=== PATIENT | male | born 1945 | race Caucasian/White ===

== ENCOUNTER 2023-03-24 11:04 | Day surgery (SDC) | payer MEDICARE, SELFPAY ==
[2023-03-24] VITALS (21 sets, daily range): BP systolic 93–164; BP diastolic 61–95; PULSE 54–89; RESP 14–20; TEMP 35.8–36.6; O2SAT 93–99; BMI 37.5
[2023-03-24] MEDS: OXYCODONE (CR) 10 MG TAB.ER.12H PO (11:36)
[2023-03-24] MEDS: CELECOXIB 200 MG CAPSULE PO (11:36)
[2023-03-24] MEDS: ACETAMINOPHEN 500 MG TABLET 1000 MG PO ×2 (11:36→20:02)
[2023-03-24] MEDS: LACTATED RINGERS 1000 ML 1,000 ML 100 ML IV ×2 (12:00→14:41)
[2023-03-24] MEDS: SODIUM CHLORIDE 0.9 % (FLUSH) 10 ML SYRINGE IVF (12:09)
--- NOTE | 2023-03-24 13:12 | P.NB_ITS ---
Nerve Block Nerve Block Time Seen by Provider: 13:45 Date Seen: 03/24/23 Type of block requested by surgeon for post-operative analgesia: adductor canal Side: left Time out performed: Yes Verification of patient name: Yes Verification of date of : Yes Site marking: site marked Name of person performing procedure: Stevie Continuous monitoring Was continuous monitoring of O2 sat, B/P, property assessment monitor, recorded every 15 minutes?: Yes Procedure Checklist: sterile prep, needles and gloves Ultrasound guided. Images saved: Yes Medications given in 5ml increments after negative aspiration: Ropivicaine %: 0.5 mL: 20 Needle gauge: 20 Decadron (mg): 10 Precedex (mcg): 25 Patient tolerated procedure well: Yes Additional comments: Needle noted adjacent to nerve Block Charges Block Charge (with Pro Fee): Femoral Nerve Use of Ultrasound Machine for Block: Yes- US Guidance/pain block
--- NOTE | 2023-03-24 13:12 | W.PM.NB ---
Nerve Block Nerve Block Time Seen by Provider: 13:45 Date Seen: 03/24/23 Type of block requested by surgeon for post-operative analgesia: geniculars Side: left Time out performed: Yes Verification of patient name: Yes Verification of date of : Yes Site marking: site marked Name of person performing procedure: Stevie Continuous monitoring Was continuous monitoring of O2 sat, B/P, monitoring analyst, recorded every 15 minutes?: Yes Procedure Checklist: sterile prep, needles and gloves Medications given in 5ml increments after negative aspiration: Ropivicaine %: 0.5 mL: 9 Needle gauge: 25 Patient tolerated procedure well: Yes Block Charges Block Charge (with Pro Fee): Genicular Nerve Block Use of Ultrasound Machine for Block: No
--- NOTE | 2023-03-24 13:12 | W.ANESCHARGE ---
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
--- NOTE | 2023-03-24 13:29 | REH.PT ---
Sx moved to 1445, PT to eval tomorrow.
[2023-03-24] MEDS: fentaNYL 100 MCG/2 ML inj IVP (13:43)
[2023-03-24] MEDS: MIDAZOLAM HCL 1 MG/ML inj IVP (13:43)
--- NOTE | 2023-03-24 13:49 | SUR.PREOP ---
TIME?OUT:?1343 PT/RN/MDA?VERIFICATION?OF?SURGICAL?SITE,?PROCEDURE,?AND?CONSENT OBTAINED?PRIOR?TO?INVASIVE?PROCEDURE.
[2023-03-24] MEDS: TRANEXAMIC ACID 100 MG/ML INJ 1000 MG IV (14:10)
[2023-03-24] MEDS: CEFAZOLIN 2 GM INJ IVP (14:10)
--- NOTE | 2023-03-24 15:37 | CRLHL7_ITS ---
For Patients: As a result of the Cures Act, medical imaging exams and procedure reports are released immediately into your electronic medical record. You may view this report before your referring provider. If you have questions, please contact your health care provider. Indication: Postop Technique: Two views left knee Findings/Impression: Hardware from a left total knee arthroplasty is in satisfactory position. Bone alignment is normal. No sign of acute fracture. Postop changes are within normal limits. Dictated by Hussain Rider MD @ 03/25/2023 8:53:07 AM (Electronically Signed)
--- NOTE | 2023-03-24 15:38 | PM.ORPRC ---
Procedure Note Date of procedure: 03/24/23 Procedure: PREOPERATIVE DIAGNOSIS: Left knee osteoarthritis POSTOPERATIVE DIAGNOSIS: Left knee osteoarthritis NAME OF OPERATION: Left total knee arthroplasty SURGEON: Andres Haskins MD TECHNICAL TRAINING COORDINATOR: MILENA Ohara ANESTHESIA: Spinal ESTIMATED BLOOD LOSS: 0 mL COMPLICATIONS: None SPECIMENS: None DRAINS: None PREOPERATIVE ANTIBIOTICS: Ancef 2 grams IMPLANTS: 1. J&J Attune # 8 posterior stabilized femur 2. # 7 fixed-bearing tibia, 14 mm x 50 mm cemented stem 3. # 8 posterior stabilized, 8 mm fixed-bearing polyethylene 4. 41 patella INDICATIONS: The patient is a 77-year-old with a longstanding history of severe, unrelenting left knee pain secondary to end-stage (grade IV) left knee osteoarthritis. Despite appropriate nonoperative management, including activity modification, anti-inflammatories, klll-mnq-[id number] pain medication, bracing, physical therapy, and injections they continue to have pain and disability. Operative intervention was offered. The risks, benefits and expected outcomes were discussed in detail. These included but were not limited to: Infection, bleeding, injury to blood vessel or nerve, venous thromboembolism. All questions were answered to their satisfaction. Use of an shipping and receiving assistant was necessary throughout the case for patient positioning and safety, soft tissue retraction, and closure. PROCEDURE: Spinal anesthesia was administered. The patient was placed supine on the operating table. The shipping and receiving assistant made sure the patient was positioned appropriately. The lower extremity was prepped and draped in the usual sterile fashion. The limb was exsanguinated with the Chad bandage. The pneumatic tourniquet was inflated to 300 mmHg. A standard anterior incision was made with the knee in flexion. Subcutaneous dissection was sharply taken through fascial layer #1. Full-thickness medial and lateral flaps were elevated. The shipping and receiving assistant retracted the soft tissues and protected them throughout the case. A standard medial parapatellar approach was made. The patella was everted. The infrapatellar fat pad was preserved. The menisci and cruciate ligaments were sharply d?brided. Marginal osteophytes were d?brided with the rongeur. The drill was used to penetrate the femoral canal. The canal was aspirated and irrigated with pulse lavage. The intramedullary femoral guide was placed for a 5-degree valgus cut, removing 10 mm off the distal femur. The saw was used to make the cut. Whitesides line and the trans epicondylar axis were marked. The femoral sizing guide was pinned onto the distal femur. Three degrees of external rotation nicely parallels the transepicondylar axis. Pins were placed for posterior referencing. The four-in-one cutting guide was pinned onto the distal femur. The anterior, posterior, and chamfer cuts were made. The shipping and receiving assistant protected the collateral ligaments. The box cutting guide was pinned. The box cuts were made. The boxed trial was placed and was an excellent fit. Drill holes for the lugs were made. Attention was then turned to the proximal tibia. The extramedullary tibial guide was placed for a neutral varus/valgus cut with 5 degrees of posterior slope, removing 2 mm based off the medial tibial surface. The shipping and receiving assistant protected the collateral ligaments and the neurovascular bundle. The saw was used to make the cut. Trial components were placed. The knee was nicely balanced in both flexion and extension. The trial components were removed. The revision tray was placed in appropriate rotation, parallel to our tibial cutting pins. It was pinned by the shipping and receiving assistant and the long and the short drill were used. The tray was removed. The stemmed trial was placed. The punch was used. The trial was removed and the punch was used again. We placed a bone plug in the femoral canal. Attention was then turned to the patella. Hamilton patellar thickness was 26 mm. The lobster claw resection guide was used with the 9.5 mm jaclyn. The saw was used to make the cut. Drill holes were made by the shipping and receiving assistant. The trial was placed and was an excellent fit. Cancellous surfaces were irrigated with pulse lavage and thoroughly dried by the shipping and receiving assistant. We cemented the tibial component, then the femoral component. We impacted the 8 mm polyethylene onto the tibial tray. The knee was brought into full extension. We then cemented the patellar component. Excessive cement was removed. The cement was allowed to harden. The knee was taken through a range of motion and was found to be nicely balanced in both flexion and extension. The patella tracks centrally. The shipping and receiving assistant did a three minute dilute Betadine solution soak. The shipping and receiving assistant irrigated the wound with 3 liters of normal saline via pulse lavage. The shipping and receiving assistant reapproximated the extensor mechanism with #1 Vicryl in an interrupted jgjkmw-jk-ykugy fashion. The shipping and receiving assistant then ran the extensor mechanism with a #1 PDO Stratafix. The shipping and receiving assistant closed the subcutaneous tissues with a 3-0 Stratafix and the skin with a running 3-0 Stratafix in a subcuticular fashion. Glue was used to seal the skin. The shipping and receiving assistant placed a dry dressing, PAULINE stocking, and Polar Care. Sponge and needle counts were correct x2. The patient tolerated the procedure well. There were no apparent complications. They were carefully transferred to the hospital bed and taken to the postanesthesia care unit in satisfactory condition. PLAN: The patient will be mobilized with physical therapy. Aspirin will be used for DVT prophylaxis. They will be discharged to home once medically appropriate.
--- NOTE | 2023-03-24 16:22 | P.ANES_ITS ---
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
--- NOTE | 2023-03-24 16:49 | P.IMCN_ITS ---
Date of Consult Patient: Cora Patient Consult date: 03/24/23 Requesting Physician: Orthopedics Primary Care Provider: Bigg Lan MD Consult Narrative Reason for consult: hypertension, congenital kidney disease, DM2 Narrative: Zack Fontana is a 77 year old male who underwent an elective left total knee arthroplasty by Dr. Haskins today for severe osteoarthritis. He's feeling very well. Pain is well controlled. Denies CP, SOB. 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 - Cystic kidney disease, unspecified (ICD-10) Type 2 diabetes mellitus without complications ?E11.9 - Type 2 diabetes mellitus without complications (ICD-10) Hypertension ?I10 - Essential (primary) hypertension (ICD-10) Surgical History (Updated 03/24/23 @ 21:32 by Linda Magana MD) History of tonsillectomy and adenoidectomy ?Z90.89 - Acquired absence of other organs (ICD-10) H/O local excision of skin lesion (~09/29/17) ?Z98.890 - Other specified postprocedural states (ICD-10) Hx of colonoscopy ?Z98.890 - Other specified postprocedural states (ICD-10) H/O hernia repair (03/07/20) ?Z98.890 - Other specified postprocedural states (ICD-10) ?Z87.19 - Personal history of other diseases of the digestive system (ICD-10) History of appendectomy ?Z90.49 - Acquired absence of other specified parts of digestive tract (ICD- 10) Family History (Updated 03/24/23 @ 16:48 by Linda Magana MD) Father Pacemaker Myocardial infarction Heart disease Mother Colon cancer Brother Bladder cancer Brother Hodgkin lymphoma Maternal Grandfather Heart disease Social History Smoking Status: Never smoker Do you use any of these nicotine containing products: None Second hand tobacco smoke exposure: No How often do you have a drink containing alcohol: 2-4 times a month Alcohol type: beer How many standard drinks containing alcohol do you have on a typical day: 1 or 2 How often do you have six or more drinks on one occasion: Never AUDIT-C Alcohol total score: 2 Non-prescribed substance use: denies use Caffeine: Yes (occ coffee) service: Yes Meds Home Medications and Allergies Home Medications Medication Instructions Recorded Confirmed Type aspirin 81 mg tablet,delayed 81 mg PO QDAY 02/16/23 03/24/23 History release fluticasone propionate 50 1 spray intranasal BID 02/16/23 03/24/23 History mcg/actuation nasal spray,suspension hydrochlorothiazide 12.5 mg tablet 12.5 mg PO HS 02/16/23 03/24/23 History losartan 50 mg tablet 50 mg PO HS 02/16/23 03/24/23 History multivitamin (Multiple Vitamins 1 tab PO QAM 02/16/23 03/24/23 History tablet) omega 8-gar-vqt-fish oil 1,000 mg 1 cap PO QDAY 02/16/23 03/24/23 History (120 mg-180 mg) capsule (Fish Oil) simvastatin 20 mg tablet 20 mg PO HS 03/23/23 03/24/23 History ferrous sulfate 325 mg (65 mg 325 mg PO DAILY 03/24/23 03/24/23 History iron) tablet (FeroSul) Allergies Allergy/AdvReac Type Severity Reaction Status Date / Time Sulfa (Sulfonamide AdvReac Rash Verified 03/24/23 11:40 Antibiotics) Exam Narrative: Exam Narrative: General: No acute distress. Awake alert oriented x3. HEENT: Normocephalic atraumatic, pupils equally round and reactive to light and accommodation. Oropharynx clear. Mucous membranes are moist. No cervical lymphadenopathy, thyromegaly or carotid bruits. No JVD. Cardiovascular: Regular rate and rhythm. No murmurs, gallops, or rubs. Chest: No increased work of breathing. Clear to auscultation bilaterally. No crackles or wheezes. Abdomen: Bowel sounds present. Soft, nondistended, nontender. No hepatosplenomegaly or masses. Extremities: Right knee bandage is clean, dry, and intact. No edema, no cyanosis or clubbing. Skin: No jaundice, no pallor, no rashes. Const: Vital Signs, click to edit/add: Vital Signs - 24 hr 03/24/23 11:50 03/24/23 13:43 03/24/23 13:45 Temperature 98 F Pulse Rate 55 L 54 L 57 L Respiratory Rate 16 16 16 Blood Pressure 151/89 H 131/79 108/73 Pulse Oximetry 98 99 98 Oxygen Delivery Me thod Nasal Cannula Nasal Cannula Oxygen Flow Rate 2 2 03/24/23 16:16 03/24/23 16:20 03/24/23 16:25 Temperature 97.3 F L 97.3 F L 97.3 F L Pulse Rate 60 58 L 58 L Respiratory Rate 14 17 14 Blood Pressure 93/63 103/73 96/67 Pulse Oximetry 96 95 94 Oxygen Delivery Me thod Room Air Room Air Room Air Oxygen Flow Rate 03/24/23 16:30 03/24/23 16:35 03/24/23 16:40 Temperature 97.3 F L 97.3 F L 97.1 F L Pulse Rate 57 L 56 L 56 L Respiratory Rate 20 14 14 Blood Pressure 111/66 101/61 113/69 Pulse Oximetry 98 98 93 Oxygen Delivery Me thod Room Air Room Air Room Air Oxygen Flow Rate Documenting provider has reviewed patient's vital signs: yes Assessment and Plan Assessment and plan (1) Status post left knee replacement: Problem comment: - 03/24/2023 Dr. Haskins - routine postop cares - twice a day aspirin for VTE prophylaxis Status: Acute (2) Osteoarthritis of left knee: Status: Acute (3) Type 2 diabetes mellitus without complications: Problem comment: - 02/09/23 A1C 6.7% - diet controlled Status: Chronic (4) Hyperlipidemia: Problem comment: Continue simvastatin. Status: Chronic (5) Hypertension: Problem comment: Hold antihypertensives postoperatively as low normal. This could be restarted if blood pressures are elevated upon discharge. Status: Chronic
--- NOTE | 2023-03-24 16:57 | SUR.PHASEI ---
patient met discharge criteria per anesthesia
[2023-03-24] MEDS: CEFAZOLIN 2 GM in 0.9 % SODIUM CHLORIDE Mini-bag 100 ML IVPB (20:02)
[2023-03-24] MEDS: SENNOSIDES 1 TAB TABLET 2 TAB PO (20:06)
[2023-03-24] MEDS: ASPIRIN 81 MG TABLET EC PO (20:07)
[2023-03-24] MEDS: SIMVASTATIN 20 MG TABLET PO (22:20)
--- NOTE | 2023-03-24 22:30 | PC.NURSE ---
Med surg recovery LTK arrived to the floor at 1650. LK mepilex dressing is CDI, no drainage present. Cyrocuff to op site, pedal pulse strong. PAULINE stockings and bilateral plexipulses on. The patient reports no pain. Pt's feeling has returned to LLE. Tolerating food with no nausea. Up to BR SBA w/ RW @2200 pt voided 500cc. Tolerated well with no dizziness/lightheadedness. Post op vitals-slightly hypertensive, he is on on RA -last q1 hr VS check is @ 2300. LJ=935, sliding scale Novolog given.
[2023-03-25] MEDS: ACETAMINOPHEN 500 MG TABLET 1000 MG PO ×2 (03:35→08:31)
[2023-03-25] MEDS: CEFAZOLIN 2 GM in 0.9 % SODIUM CHLORIDE Mini-bag 100 ML IVPB (03:35)
[2023-03-25] MEDS: SODIUM CHLORIDE 0.9 % (FLUSH) 10 ML SYRINGE 5 ML IVF (03:36)
[2023-03-25 05:35] VITALS: BP 141/83; PULSE 94; RESP 16; TEMP 36.6; O2SAT 94
--- NOTE | 2023-03-25 06:19 | PC.NURSE ---
Shift note: Surgical dressing is C/D/I, surrounding skin is intact, pedal pulses strong, moving affected extremity well. Pt is afebrile, pain is 0/10 throughout the whole shift. Ambulates with no increase of pain, no lightheadedness or dizziness, tolerates PO food and fluids with no c/o nausea.
[2023-03-25 07:00] VITALS: PULSE 82; RESP 20; O2SAT 99
[2023-03-25 07:12] LABS: Hematocrit 37.3 % (37.0-53.0); Hemoglobin* 11.8 gm/dL (13.5-17.5); Immature Granulocytes Pct Auto 0.2 %; Lymphocytes Percent Auto 8.3 % (20-44); Mean Corpuscular HGB Conc 32 gm/dL (32-36); Mean Corpuscular Hemoglobin 24 pg (26-34); Mean Corpuscular Volume 77 fL (80-100); Monocytes Percent Auto 4.7 % (0.0-11.0); Neutrophils Percent Auto 86.8 % (42.0-72.0); Platelet Count* 281 K/uL (140-440); RDW Coefficient of Variation % 17.1 % (11.5-15.5); Red Blood Count 4.86 m/uL (4.30-5.90); White Blood Count* 13.54 K/uL (4.50-11.00)
[2023-03-25 07:25] LABS: Potassium* 4.5 mmol/L (3.6-5.1); Sodium* 135 mmol/L (135-149)
[2023-03-25 07:27] LABS: Slide Review Reflex No
[2023-03-25 07:28] LABS: Blood Urea Nitrogen* 23 mg/dL (7-30); Creatinine* 0.8 mg/dL (0.5-1.5); Est. Creatinine Clearance* 54.67; Estimated Glomerular Filt Rate 92 ml/min
[2023-03-25 07:34] LABS: INR 0.98 (0.91-1.10); Prothrombin Time 13.5 Seconds
[2023-03-25 08:05] VITALS: BP 150/98; PULSE 82; RESP 20; TEMP 36.9; O2SAT 99
[2023-03-25] MEDS: MULTIVITAMIN/MINERALS 1 TABLET 1 TAB PO (08:29)
[2023-03-25] MEDS: FERROUS SULFATE 325 MG TABLET PO (08:29)
[2023-03-25] MEDS: ASPIRIN 81 MG TABLET EC PO (08:29)
[2023-03-25] MEDS: SENNOSIDES 1 TAB TABLET 2 TAB PO (08:29)
--- NOTE | 2023-03-25 08:47 | PM.ORPN ---
Subjective Subjective Time Seen by Provider: 07:45 Date Seen: 03/25/23 Principal diagnosis: status post left knee replacement Interval history: Zack is comfortable this morning. He will discharge today to home. Ortho Exam Narrative Exam Narrative: Alert and oriented x3. Patient is in no acute distress. Converses without labored breathing. Hearing is grossly intact. Ambulates with a Walker. Examination the left knee shows no erythema or warmth or sign of infection. Dressing is intact. Mild edema. Mild effusion. No ecchymosis. Bilateral calves are soft and nontender. Good quad strength. CMS intact left lower extremity. Const Vital Signs, click to edit/add: Vital Signs - 24 hr 03/24/23 11:50 03/24/23 13:43 03/24/23 13:45 Temperature 98 F Pulse Rate 55 L 54 L 57 L Pulse Rate [Left Pulse Oximeter] Respiratory Rate 16 16 16 Blood Pressure 151/89 H 131/79 108/73 Blood Pressure [Right Arm] Pulse Oximetry 98 99 98 Oxygen Delivery Method Nasal Cannula Nasal Cannula Oxygen Flow Rate 2 2 03/24/23 16:16 03/24/23 16:20 03/24/23 16:25 Temperature 97.3 F L 97.3 F L 97.3 F L Pulse Rate 60 58 L 58 L Pulse Rate [Left Pulse Oximeter] Respiratory Rate 14 17 14 Blood Pressure 93/63 103/73 96/67 Blood Pressure [Right Arm] Pulse Oximetry 96 95 94 Oxygen Delivery Method Room Air Room Air Room Air Oxygen Flow Rate 03/24/23 16:30 03/24/23 16:35 03/24/23 16:40 Temperature 97.3 F L 97.3 F L 97.1 F L Pulse Rate 57 L 56 L 56 L Pulse Rate [Left Pulse Oximeter] Respiratory Rate 20 14 14 Blood Pressure 111/66 101/61 113/69 Blood Pressure [Right Arm] Pulse Oximetry 98 98 93 Oxygen Delivery Method Room Air Room Air Room Air Oxygen Flow Rate 03/24/23 16:45 03/24/23 17:15 03/24/23 17:25 Temperature 97.1 F L 96.7 F L 96.6 F L Pulse Rate 59 L Pulse Rate [Left Pulse Oximeter] 64 54 L Respiratory Rate 15 18 18 Blood Pressure 100/65 Blood Pressure [Right Arm] 149/95 H 141/91 H Pulse Oximetry 95 96 97 Oxygen Delivery Method Room Air Room Air Room Air Oxygen Flow Rate 03/24/23 17:40 03/24/23 17:56 03/24/23 18:00 Temperature 96.5 F L 97.3 F L 96.8 F L Pulse Rate 58 L Pulse Rate [Left Pulse Oximeter] 57 L 84 Respiratory Rate 18 16 18 Blood Pressure Blood Pressure [Right Arm] 148/80 H 114/71 150/75 H Pulse Oximetry 96 98 Oxygen Delivery Method Room Air Room Air Room Air Oxygen Flow Rate 03/24/23 18:30 03/24/23 19:00 03/24/23 20:00 Temperature 97.2 F L 97.3 F L 97.0 F L Pulse Rate Pulse Rate [Left Pulse Oximeter] 80 81 84 Respiratory Rate 16 16 16 Blood Pressure Blood Pressure [Right Arm] 144/76 H 152/75 H 164/86 H Pulse Oximetry 96 95 93 Oxygen Delivery Method Room Air Room Air Room Air Oxygen Flow Rate 03/24/23 21:00 03/24/23 22:00 03/24/23 23:00 Temperature 97.2 F L 97.8 F Pulse Rate Pulse Rate [Left Pulse Oximeter] 85 89 Respiratory Rate 16 16 Blood Pressure Blood Pressure [Right Arm] 148/87 H 152/87 H Pulse Oximetry 94 95 95 Oxygen Delivery Method Room Air Room Air Oxygen Flow Rate 03/25/23 05:35 03/25/23 07:00 03/25/23 07:00 Temperature 98 F Pulse Rate Pulse Rate [Left Pulse Oximeter] 94 82 Respiratory Rate 16 20 Blood Pressure Blood Pressure [Right Arm] 141/83 H Pulse Oximetry 94 99 Oxygen Delivery Method Room Air Oxygen Flow Rate 03/25/23 08:05 Temperature 98.5 F Pulse Rate Pulse Rate [Left Pulse Oximeter] 82 Respiratory Rate 20 Blood Pressure Blood Pressure [Right Arm] 150/98 H Pulse Oximetry 99 Oxygen Delivery Method Room Air Oxygen Flow Rate Assessment and Plan Assessment and plan (1) Status post left knee replacement: Problem details: - 03/24/2023 Dr. Haskins - routine postop cares - twice a day aspirin for VTE prophylaxis Status: Acute Assessment and Plan: Plan for discharge is today to home if they meet discharge criteria. DVT prophylaxis includes aspirin 81 mg twice daily x1 month, Robert stockings x1 month may remove for 1 hr per day, frequent ambulation Remove dressing in 1 week. Observe wound and phone Orthopedics with any questions or concerns Return to clinic in 1 week for a wound check Return to clinic in [address] Haskins Minimize narcotic use. Wean off and discontinue soon as possible. Activities as tolerated. No strenuous activity. Outpatient physical therapy as scheduled. Ice and elevate the operative extremity. No restriction on ice. (2) Osteoarthritis of left knee: Status: Acute (3) Type 2 diabetes mellitus without complications: Problem details: - 02/09/23 A1C 6.7% - diet controlled Status: Chronic (4) Hyperlipidemia: Problem details: Continue simvastatin. Status: Chronic (5) Hypertension: Problem details: Hold antihypertensives postoperatively as low normal. This could be restarted if blood pressures are elevated upon discharge. Status: Chronic
--- NOTE | 2023-03-25 12:03 | PC.SOCIAL ---
Pt. discharged home with spouse support after a LTKA. Pt. is moving well no additional resources needed.
== END 2023-03-25 09:55 | disposition home or self-care (01) ==
LOC: OR 11:05 → MEDSURG 11:08
PROVIDERS: PCP Family Medicine; Visit Provider Orthopaedic Surgery
PROC: (CPT 27447; principal; 2023-03-24 14:45)
DX: M17.12 Unilateral primary osteoarthritis, left knee (principal); G89.18 Other acute postprocedural pain; I10 Essential (primary) hypertension; E11.9 Type 2 diabetes mellitus without complications; Q61.5 Medullary cystic kidney
CPT/HCPCS: 27447; 01402; 36415; 64447; 64454; 73560; 76942; 82565; 82962; 84132; 84295; 84520; 85025; 85610; 97110; 97116; 97161; 97165; 97535; 99100; A9153; A9270; C1776; J0690; J1100; J2250; J2405; J2704; J2795; J3010; J7120

== ENCOUNTER 2023-05-19 07:30 | Outpatient (RCR) | payer MEDICARE, SELFPAY ==
--- NOTE | 2023-03-19 17:44 | PT.OPEX ---
[facility] Start: 03/19/23 14:35 Freq: Status: Active Protocol: Document 03/19/23 16:47 IRIS (Rec: 03/19/23 17:39 IRIS [id number]) E-signed By Scotty Aguilar PT Physical Therapy Outpatient Evaluation Insurance Information Insurance Name Medicare B,[employer] Medical Diagnosis Left knee OA Treating Diagnosis Left knee pain Referring MD Haskins Subjective Pain Comments 2 Date of Surgery (If applicable) 03/24/23 Current Work Status Retired Objective Range of Motion Bilat. knee flexion is WNL Bilat. extension shows a 5 degree lag Strength normal quad strength Assessment Assessment/Impression Objectively, pt. demonstrates; slightly flexed knee gait pattern; mild loss of bilateral knee extension with some flexion contracture noted ; good bilateral knee flexion ROM; normal quad strength; and mild gluteal weakness/ deconditioning. He demonstrates excellent rehab potential following his TKA. Primary Functional Limitations walking, steps, sit to stand, bowling, golfing, hunting Plan of Care Rehabilitation Potential Excellent Physical Therapy Goals 1. Pt. will be indep. with HEP for self maintenance in 12 weeks. 2. Pt. will be able to walk without assistive device with good gait pattern in 8 weeks. 3. Pt. will demonstrate normal quad and good core strength in 8 weeks. 4. Pt. will demonstrate functional knee AROM to allow regular ADL's and step navigation in 8 weeks. Coordination/Communication With Referral Source Treatment Plan/Direct Interventions Gait Training,Ice/Cold/ Vasopneumatic,Joint Mobilization,Manual Therapy, Neuromuscular Re-ed,Self-Care/ Home Management,Therapeutic Activities,Therapeutic Exercises Frequency/Duration 1 pre-op visit, then 2 times a week for 8 weeks following TKA surgery. Patient Will Be Discharged From Therapy Independent w/HEP, Independently Progressing Evaluation Billing Complexity Low Certification Information Initial Certification Date 03/19/23 Ending Certification Date 06/12/23 Provider Signature Shows Agreement With POC & Medical Necessity Physician Signature & Date Requested Please Sign/Date Here Physician Comment/Change : Physician NPI Number #
== END 2023-05-19 09:57 | disposition home or self-care (01) ==
PROVIDERS: PCP Orthopaedic Surgery; Visit Provider Orthopaedic Surgery
DX: M17.12 Unilateral primary osteoarthritis, left knee (principal); Z96.652 Presence of left artificial knee joint; M25.562 Pain in left knee; Z47.1 Aftercare following joint replacement surgery; Z51.89 Encounter for other specified aftercare
CPT/HCPCS: 97110; 97116; 97140; 97161; 97164

== ENCOUNTER 2023-09-24 08:29 | Day surgery (SDC) | payer MEDICARE, SELFPAY ==
[2023-09-24] VITALS (22 sets, daily range): BP systolic 102–157; BP diastolic 64–89; PULSE 49–75; RESP 14–20; TEMP 36.3–36.9; O2SAT 95–98; BMI 39.2
--- OUTSIDE RECORDS SUMMARY | 2023-09-24 08:32 | XMS_ITS | Clinical Summary ---
Author Name Unknown Organization [employer] [facility] [employer] [facility] Address [place], [place] [address] Care Team Providers Care Power Lineman Name Role Phone Bigg Lan MD Primary Care Provider Allergies Active Allergy Reactions Criticality Noted Date Comments Sulfa (Sulfonamide Antibiotics) Rash 01/2007 Medications Medication Sig Dispensed Refills Start Date End Date Status aspirin (ECOTRIN) 81 mg enteric coated tablet Take 1 tablet by mouth once daily with a meal. 0 02/20/2015 Active multivitamin (MVI) tablet Take 1 Tablet by mouth once daily. 0 11/01/2021 Active simvastatin (ZOCOR) 20 mg tabletIndications:M ixed hyperlipidemia Take 1 Tablet (20 mg) by mouth at bedtime. 90 Tablet 3 08/18/2022 Active fluticasone (50 mcg per actuation) nasal solution (FLONASE)Indication s:Acute non-recurrent maxillary sinusitis Inhale 1 Preston to both nostrils 2 times daily. 48 g 3 11/03/2022 Active hydroCHLOROthiazide 12.5 mg tabletIndications:E ssential hypertension Take 1 Tablet (12.5 mg) by mouth once daily. 90 Tablet 3 01/29/2023 Active losartan (COZAAR) 50 mg tabletIndications:E ssential hypertension Take 0.5 Tablets (25 mg) by mouth two times daily. 90 Tablet 3 01/29/2023 Active metFORMIN (GLUCOPHAGE) 500 mg tabletIndications:D iabetes mellitus without complication (HC) Take 1 Tablet (500 mg) by mouth once daily with a meal. 90 Tablet 1 02/13/2023 Active ferrous sulfate 325 mg delayed release tabletIndications:I lorie deficiency anemia, unspecified iron deficiency anemia type Take 1 Tablet (325 mg) by mouth once daily with a meal. 90 Tablet 3 03/16/2023 Active acetaminophen (TYLENOL EXTRA STRGTH) 500 mg tablet Take 1-2 Tablets (500-1,000 mg) by mouth every 6 hours if needed for pain, Max Daily Dose: 4000mg per day 100 Tablet 0 03/24/2023 Active aspirin chewable 81 mg chewable tablet Chew 1 Tablet (81 mg) by mouth two times daily with meals for DVT prophylaxis for 30 days. 60 Tablet 0 03/24/2023 Active oxyCODONE (ROXICODONE) 5 mg immediate release tablet Take 0.5-1 Tablets (2.5-5 mg) by mouth every 4-6 hours if needed for Pain, Max Daily Dose: 6 tabs per day; Minimize. Discontinue as soon as possible. 42 Tablet 0 03/24/2023 Active sennosides (SENNA) 8.6 mg tablet Take 2 Tablets (17.2 mg) by mouth 2 times daily if needed for constipation. 100 Tablet 0 03/24/2023 Active losartan-hydrochlor othiazide, 50-12.5 mg, (HYZAAR) 50-12.5 mg tabletIndications:E ssential hypertension Take 1 tablet by mouth once daily. 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 Type II or unspecified type diabetes mellitus without mention of complication, not stated as uncontrolled 10/06/2006 Hematuria 10/06/2006 Nevus, atypical Family history of colon cancer Resolved Problems Problem Noted Date Diagnosed Date Resolved Date Morbid obesity 01/07/2017 11/03/2021 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 Encounters Date Type Department Care Team Description 09/23/[address] [place] [address] Bigg Lan MD 09/17/2023 9:10 AM PHP WEBSITE DEVELOPER Preop Visit [address] [place] [address] [address] MD Preoperative Exam (Surgery with Dr Haskins at [facility] on 09/24/23) 09/17/2023 Travel 09/07/2023 10:30 AM PHP WEBSITE DEVELOPER Orders Only [address] [place] [address] [facility] 09/07/2023 Travel 09/02/[address] [place] [address] Bigg Lan MD Form ([facility] forms) 08/20/2023 9:10 AM PHP WEBSITE DEVELOPER Office Visit [address] [place] [address] Bigg Lan MD Medicare ANNUAL (subsequent) Visit 08/20/2023 Travel from Last 3 Months Immunizations Name Administration Dates Next Due AMB Influenza, IIV3 (Age >=3 years)(Flu Clinic Only) 06/27/2008 COVID-19 vaccine (Moderna 100mcg/0.5mL) PF, MDV 11/23/2020,10/26/2020 COVID-19 vaccine (Pfizer-Bio NTech 30mcg/0.3mL) 12YO+ BIVALENT PF, MDV 08/18/2022 Hepatitis A (Adult) 12/21/2017,10/07/2015,2014 Hepatitis B (Adult) 06/28/2001,02/02/2001,2000 Influenza, High-dose Inactivated 05/25/2018,11/0 01/2017,06/03/2016 Influenza, IIV3 (Age 6-35 mos) 06/24/2011 Influenza, IIV3 (Age >=3 years) 06/22/20 13,06/12/2012,06/24/2011,2008,06/27/2008,07/13/2007,07/09/2006,1 09/16/2004,07/20/2003 Influenza, IIV4 06/09/2019,05/25/2015,08/01/2014 Influenza, IIV4 (=>6mos) MDV 06/09/2019 Influenza, Inactivated AIIV4 (Age 65+ Years) Preserv Free 06/16/2022,05/21/2021,05/21/2020 Influenza, Inactivated IIV3 (Age 65+ Years) Preserv Free 07/06/2017 Pneumococcal Poly,23-Valent (Pneumovax) 06/22/2013,07/20/2003,07/29/2001 Pneumococcal conj 13-Valent (Prevnar 13) 08/25/2012 Td (Age >=7 Years) 11/29/1993 Td, Preservative Free (age > = 7 Years) 07/13/2007 Tdap 12/21/2017 Zoster (Shingrix-RZV, recombinant) 07/30/2018, Zoster (Zostavax-ZVL, live) 06/22/2013 Family History Medical History Relation Name Comments Cancer Brother 1 bladder Cancer Brother 5 HODKIN'S LYMPHO MA Heart Disease Father PACEMAKER Heart Disease Maternal Grandfather Cancer-colon Mother Anesthesia Problem No Family History Clotting disorder No Family History Relation Name Status Comments Brother 1 Alive Brother 2 Alive Brother 3 Alive Brother 4 Alive Brother 5 Daughter Alive Father Maternal Grandfather Maternal Grandmother Mother Paternal Grandfather Paternal Grandmother Sister 1 Alive Sister 2 Alive Sister 3 Alive Son 1 Alive Son 2 Alive Son 3 Alive Son 4 Alive Social History Tobacco Use Types Packs/Day Years Used Date Smoking Tobacco: Never Smokeless Tobacco: Never Tobacco Cessation:Counseling Given: Yes Alcohol Use Standard Drinks/Week Comments Yes 0 (1 standard drink = 0.6 oz pur e alcohol) RARE, maybe once a month PHQ-2 Answer Date Recorded PHQ-2 TOTAL SCORE 0 08/20/2023 Social Connections Answer Date Recorded Frequency of Communication with Friends and Fami ly Not on file 02/12/2023 Financial Resource Strain Answer Date R ecorded Difficulty of Paying Living Expenses 3 02/11/2022 Difficulty of Paying Living Expenses Not on file 02/11/2022 Food Insecurity Answer Date Recorded Worried About Running Out of Food in the Last Ye ar 1 02/11/2022 Transportation Needs Answer Date Record ed Lack of Transportation (Medical) 1 02/11/2022 Housing Stability Answer Date Recorded Unable to Pay for Housing in the Last Year 1 02/11/2022 Sex and Gender Information Value Date Recorded Sex Assigned at Not on file Gender Identity Not on file Sexual Orientation Not on file Obstetrics History Last Filed Vital Signs Vital Sign Reading Time Taken Comments Blood Pressure 134/82 09/17/2023 9:19 AM PHP WEBSITE DEVELOPER Pulse 87 09/17/2023 9:15 AM PHP WEBSITE DEVELOPER Temperature 36.7 ??C (98 ??F) 08/18/2022 7:28 AM PHP WEBSITE DEVELOPER Respiratory Rate 20 09/17/2023 9:15 AM PHP WEBSITE DEVELOPER Oxygen Saturation 95% 09/17/2023 9:15 AM PHP WEBSITE DEVELOPER Inhaled Oxygen Concentration - - Weight 107.3 kg (236 lb 8 oz) 09/17/2023 9:15 AM PHP WEBSITE DEVELOPER Height 167 cm (5' 5.75) 09/17/2023 9:15 AM PHP WEBSITE DEVELOPER Body Mass Index 38.46 09/17/2023 9:15 AM PHP WEBSITE DEVELOPER Plan of Treatment Health Maintenance Due Date Last Done Comments Influenza for age 65+ 05/01/2023 06/16/2022 , 05/21/2021, 05/21/2020, Additional history exists Medicare Wellness for age 65+ 08/19/2024, 08/18/2022, 08/16/2021, Additional history exists Depression screening for age 12+ 08/20/2024 08/20/2023, 08/18/2022, 08/19/2021, Additional history exists BMI (ht and wt on same day) for age 18+ 09/17/2024 09/17/2023, 08/20/2023, 03/13/2023, Additional history exists Tetanus booster 12/22/2027 12/21/2017, 07/01, 11/29/1993 Pneumococcal series for age 65+ Completed 06/22/2013, 08/25/2012, 07/20/2003, Additional history exists Tdap Completed 12/21/2017 Zoster (shingles) series for age 50+ Completed 07/30/2018, 05/25/2018, 06/22/2013 Hepatitis C screening for ag e 18-79 Completed 02/21/2021 COVID-19 vaccine series Completed 06/04/20, 08/18/2022, 03/12/2022, Additional history exists Goals Goal Patient Goal Type Associated Problems Recent Progress Patient-Stated? Author BLOOD PRESSURE - MAINTAINS BP less than 140/90 Blood Pressure No Jr Carlisle MD Medical Devices Implanted Type Area Customer Project Manager Device Identifier Shelf Expiration Date Model / Serial / Lot Mesh Inguinal Rt 3x5in 3-D Max - [id number] Implanted:Qty : 1 on 03/07/2020 by Lauren Ray DO at [facility] General Surgery Implants Right: Inguinal [employer] 07/28/2024 [id number] / / [id number] Explanted Type Area Customer Project Manager Device Identifier Shelf Expiration Date Model / Serial / Lot Mesh Inguinal Rt 4x6in 3-D Max - [id number] Implanted:Qty: 1 Explanted:Qty: 1 on 03/07/2020 at [facility] Right: Inguinal [employer] 08/27/2024 [id number] / / [id number] Procedures Procedure Name Priority Date/Time Associated Diagnosis Comments HEMOGLOBIN A1C Add On 09/07/2023 9:44 AM PHP WEBSITE DEVELOPER Controlled type 2 diabetes mellitus with complication, without long-term current use of insulin (HC) LIPID PANEL W REFLEX MEASURED LDL STAT 09/07/2023 9:44 AM PHP WEBSITE DEVELOPER Mixed hyperlipidemia CBC W PLT NO DIFF Routine 09/07/2023 9:4 4 AM PHP WEBSITE DEVELOPER Preop testing BASIC METABOLIC PANEL STAT 09/07/2023 9:44 AM PHP WEBSITE DEVELOPER Essential hypertension Controlled type 2 diabetes mellitus with complication, without long-term current use of insulin (HC) from Last 3 Months Results * (ABNORMAL) LIPID PANEL W REFLEX MEASURED LDL (09/07/2023 9:44 AM PHP WEBSITE DEVELOPER) CHOLESTEROL,TOTAL 189 100 - 199 mg/dL 09/07/2023 10:37 AM PHP WEBSITE DEVELOPER [facility] Comment: Cholesterol, Total Reference Ranges Desirable <200 mg/dL Borderline 200-239 mg/dL High >=240 mg/dL TRIGLYCERIDES 201(H) <150 mg/dL 09/07/2023 10:37 AM [facility] HDL CHOLESTEROL 42 >40 mg/dL 10:37 AM [facility] NON-HDL CHOLESTEROL 147(H) <145 mg/dl 09/07/2023 10:37 AM [facility] CHOL/HDL RATIO 4.50(H) <4.50 09/07/2023 10:37 AM [facility] LDL CHOLESTEROL 107 <=130 mg/dL 09/07/2023 10:37 AM [facility] VLDL CHOLESTEROL 40(H) <=30 mg/dL 09/07/2023 10:37 AM [facility] PROVIDER ORDERED STATUS RANDOM 09/07/2023 10:37 AM [facility] Blood BLOOD SPECIMEN / Unknown Venipuncture / Unknown 09/07/2023 9:44 AM PHP WEBSITE DEVELOPER 09/07/2023 9:47 AM [facility] Bigg Lan MD CHEMISTRY [facility] [address] [place] [address] * (ABNORMAL) CBC W PLT NO DIFF (09/07/2023 9:44 AM [facility]) WHITE BLOOD COUNT 7.9 4.5 - 11.0 thou/cu mm 09/07/2023 10:30 AM [facility] RED BLOOD COUNT 5.63 4.30 - 5.90 mil/cu mm 09/07/2023 10:30 AM [facility] HEMOGLOBIN 14.3 13.5 - 17.5 g/dL 09/07/2023 10:30 AM [facility] HEMATOCRIT 45.7 37.0 - 53.0 % 09/07/2023 10:30 AM [facility] MCV 81 80 - 100 fL 09/07/2023 10:30 AM [facility] MCH 25.4(L) 26.0 - 34.0 pg 09/07/2023 10:30 AM [facility] MCHC 31.3(L) 32.0 - 36.0 g/dL 09/07/2023 10:30 AM [facility] RDW 19.9(H) 11.5 - 15.5 % 09/07/2023 10:30 AM [facility] PLATELET COUNT 284 140 - 440 thou/cu mm 09/07/2023 10:30 AM [facility] MPV 9.5 6.5 - 11.0 fL 09/07/2023 10:30 AM [facility] Blood BLOOD SPECIMEN / Unknown Venipuncture / Unknown 09/07/2023 9:44 AM PHP WEBSITE DEVELOPER 09/07/2023 9:47 AM PHP WEBSITE DEVELOPER Bigg Lan MD HEMATOLOGY Performing Organization Address City/State/[facility] Co de Phone Number [facility] [address] [place] [address] * (ABNORMAL) HEMOGLOBIN A1C MONITORING (POCT) (09/07/2023 9:44 AM PHP WEBSITE DEVELOPER) HEMOGLOBIN A1C MONITORING (POCT) 6.6(H) <=6.4 % 09/07/2023 4:52 PM PHP WEBSITE DEVELOPER [facility] Blood BLOOD SPECIMEN / Unknown Venipuncture / Unknown 09/07/2023 9:44 AM PHP WEBSITE DEVELOPER 09/07/2023 9:47 AM PHP WEBSITE DEVELOPER Narrative [facility] - 09/07/2023 4:52 PM PHP WEBSITE DEVELOPER ? (<=6.9%) ? Indicates good control ? (7.0% to 7.9%) ? Indicates fair control ? (>=8.0%) ? Indicates poor control ?? NOTE: ??These thresholds are guidelines and ?individual targets may vary. Falsely low levels may be seen with: Recent Transfusion, Recent Significant Blood Loss, Hemolytic Diseases, or Falsely elevated levels may be seen with: Untreated Anemias, Splenectomy ? Bigg Lan MD CHEMISTRY [facility] [address] [place] [address] * (ABNORMAL) BASIC METABOLIC PANEL (09/07/2023 9:44 AM [facility]) SODIUM 138 136 - 145 mmol/L 09/07/2023 10:37 AM [facility] POTASSIUM 4.1 3.5 - 5.1 mmol/L 09/07/2023 10:37 AM [facility] CHLORIDE 100 98 - 107 mmol/L 09/07/2023 10:37 AM [facility] CO2,TOTAL 27 22 - 29 mmol/L 09/07/2023 10:37 AM [facility] ANION GAP 11 5 - 18 09/07/2023 10:37 AM [facility] GLUCOSE 132(H) 70 - 99 mg/dL 09/07/2023 10:37 AM [facility] CALCIUM 9.4 8.8 - 10.2 mg/dL 09/07/2023 10:37 AM [facility] BUN 18 8 - 23 mg/dL 09/07/2023 10:37 AM [facility] CREATININE 0.92 0.70 - 1.20 mg/dL 09/07/2023 10:37 AM [facility] BUN/CREAT RATIO 20 10 - 20 10:37 AM [facility] eGFR 86(L) >90 mL/min/1.7 3m2 09/07/2023 10:37 AM [facility] Comment:As of 2021, eG FR is calculated by the CKD-EPI creatinine equation without race adjustment. ??eGFR can be influenced by muscle mass, exercise, and diet. ??The reported eGFR is an estimation only and is only applicable if the renal function is stable. Blood BLOOD SPECIMEN / Unknown Venipuncture / Unknown 09/07/2023 9:44 AM PHP WEBSITE DEVELOPER 09/07/2023 9:47 AM PHP WEBSITE DEVELOPER Bigg Lan MD CHEMISTRY [facility] [address] [facility] [place] [address] from Last 3 Months Advance Directives Latest Code Status on File Code Status Date Activated Date Inactivated Comments Full Code 06/19/2021 8:11 AM 06/19/2021 1:12 PM Question Answer Comments Code Status Discussion: Per Existing Order Code Status History Code Status Date Activated Date Inactivated Comments Full Code 03/07/2020 10:45 AM 03/07/2020 9:23 PM Question Answer Comments Code Status Discussion: Discussed Care Teams Power Lineman Relationship Specialty Start Date End Date Bigg Lan MD [address] [facility] [place] [address] PCP - General Family Practice 08/02/20
[2023-09-24] MEDS: LACTATED RINGERS 1000 ML 1,000 ML 100 ML IV (08:40)
[2023-09-24] MEDS: ACETAMINOPHEN 500 MG TABLET 1000 MG PO ×3 (10:10→21:58)
[2023-09-24] MEDS: OXYCODONE (CR) 10 MG TAB.ER.12H PO (10:10)
[2023-09-24] MEDS: CELECOXIB 200 MG CAPSULE PO (10:10)
[2023-09-24] MEDS: fentaNYL 100 MCG/2 ML inj IVP (10:15)
[2023-09-24] MEDS: MIDAZOLAM HCL 1 MG/ML inj IVP (10:15)
[2023-09-24] MEDS: SODIUM CHLORIDE 0.9 % (FLUSH) 10 ML SYRINGE IVF (10:20)
--- NOTE | 2023-09-24 10:22 | SUR.PREOP ---
3cm round, scabbed over wound on right mead. Pt states it was from a piece of wood that hit him through his coveralls.
--- NOTE | 2023-09-24 10:26 | SUR.PREOP ---
TIME?OUT:?1014 PT/RN/MDA?VERIFICATION?OF?SURGICAL?SITE,?PROCEDURE,?AND?CONSENT OBTAINED?PRIOR?TO?INVASIVE?PROCEDURE.
[2023-09-24] MEDS: CEFAZOLIN 2 GM INJ IVP (10:46)
[2023-09-24] MEDS: TRANEXAMIC ACID 100 MG/ML INJ 1000 MG IV (10:47)
--- NOTE | 2023-09-24 10:56 | W.PM.NB ---
Nerve Block Nerve Block Time Seen by Provider: 10:18 Date Seen: 09/24/23 Type of block requested by surgeon for post-operative analgesia: adductor canal Side: right Time out performed: Yes Verification of patient name: Yes Verification of date of : Yes Site marking: site marked Name of person performing procedure: Stevie Assistants, if any: Ashish Continuous monitoring Was continuous monitoring of O2 sat, B/P, ekg monitor tech, recorded every 15 minutes?: Yes Procedure Checklist: sterile prep, needles and gloves Ultrasound guided. Images saved: Yes Medications given in 5ml increments after negative aspiration: Ropivicaine %: 0.5 mL: 20 Needle gauge: 20 Decadron (mg): 10 Precedex (mcg): 25 Patient tolerated procedure well: Yes Additional comments: Needle noted adjacent to nerve Block Charges Block Charge (with Pro Fee): Femoral Nerve Use of Ultrasound Machine for Block: Yes- US Guidance/pain block
--- NOTE | 2023-09-24 10:56 | W.PM.NB ---
Nerve Block Nerve Block Time Seen by Provider: 10:18 Date Seen: 09/24/23 Type of block requested by surgeon for post-operative analgesia: geniculars Side: right Time out performed: Yes Verification of patient name: Yes Verification of date of : Yes Site marking: site marked Name of person performing procedure: Stevie Continuous monitoring Was continuous monitoring of O2 sat, B/P, environmental monitoring specialist, recorded every 15 minutes?: Yes Procedure Checklist: sterile prep, needles and gloves Medications given in 5ml increments after negative aspiration: Ropivicaine %: 0.5 mL: 9 Needle gauge: 25 Patient tolerated procedure well: Yes Block Charges Block Charge (with Pro Fee): Genicular Nerve Block Use of Ultrasound Machine for Block: No
--- NOTE | 2023-09-24 10:56 | W.ANESCHARGE ---
Anesthesia Charges Start Date/Time Anesthesia Start Date: 09/24/23 Anesthesia Start Time: 10:29 Stop Date/Time Anesthesia Stop Date: 09/24/23 Anesthesia Stop Time: 13:09 Summary Extremes of Age - Over 70 or under 1: MDA
--- NOTE | 2023-09-24 12:10 | CRLHL7_ITS ---
For Patients: As a result of the Cures Act, medical imaging exams and procedure reports are released immediately into your electronic medical record. You may view this report before your referring provider. If you have questions, please contact your health care provider. Indication: POST OP RIGHT TKA Technique: Two views right knee Findings/Impression: Hardware from a right total knee arthroplasty is in satisfactory position. Bone alignment is normal. No sign of acute fracture. Postop changes are within normal limits. Dictated by Hussain Rider MD @ 09/24/2023 3:00:08 PM (Electronically Signed)
--- NOTE | 2023-09-24 12:11 | P.ORPRC_ITS ---
Procedure Note Date of procedure: 09/24/23 Procedure: PREOPERATIVE DIAGNOSIS: Right knee osteoarthritis POSTOPERATIVE DIAGNOSIS: Right knee osteoarthritis NAME OF OPERATION: Right total knee arthroplasty SURGEON: Andres Haskins MD VP SOFTWARE: Daniella Wright PA-C ANESTHESIA: Spinal ESTIMATED BLOOD LOSS: 0 mL COMPLICATIONS: None SPECIMENS: None DRAINS: None PREOPERATIVE ANTIBIOTICS: Ancef 2 grams, antibiotic impregnated cement IMPLANTS: 1. J&J Attune # 8 posterior stabilized femur 2. # 7 revision CRS fixed-bearing tibia, 14 mm x 50 mm cemented stem 3. # 8 posterior stabilized, 5 mm fixed-bearing polyethylene 4. 41 patella INDICATIONS: The patient is a 78-year-old with a longstanding history of severe, unrelenting right knee pain secondary to end-stage (grade IV) right knee osteoarthritis. Despite appropriate nonoperative management, including activity modification, anti-inflammatories, [id number] pain medication, bracing, physical therapy, and injections they continue to have pain and disability. Operative intervention was offered. The risks, benefits and expected outcomes were discussed in detail. These included but were not limited to: Infection, bleeding, injury to blood vessel or nerve, venous thromboembolism. All questions were answered to their satisfaction. Use of an dairy and food laboratory assistant was necessary throughout the case for patient positioning and safety, soft tissue retraction, and closure. PROCEDURE: Spinal anesthesia was administered. The patient was placed supine on the operating table. The dairy and food laboratory assistant made sure the patient was positioned appropriately. The lower extremity was prepped and draped in the usual sterile fashion. The limb was exsanguinated with the Chad bandage. The pneumatic tourniquet was inflated to 300 mmHg. A standard anterior incision was made with the knee in flexion. Subcutaneous dissection was sharply taken through fascial layer #1. Full-thickness medial and lateral flaps were elevated. The dairy and food laboratory assistant retracted the soft tissues and protected them throughout the case. A standard subvastus approach was made. The patella was everted. The infrapatellar fat pad was preserved. The menisci and cruciate ligaments were sharply d?brided. Marginal osteophytes were d?brided with the rongeur. The drill was used to penetrate the femoral canal. The canal was aspirated and irrigated with pulse lavage. The intramedullary femoral guide was placed for a 5-degree valgus cut, removing 10 mm off the distal femur. The saw was used to make the cut. Whitesides line and the trans epicondylar axis were marked. The femoral sizing guide was pinned onto the distal femur. Three degrees of ex ternal rotation nicely parallels the transepicondylar axis. Pins were placed for posterior referencing. The four-in-one cutting guide was pinned onto the distal femur. The anterior, posterior, and chamfer cuts were made. The dairy and food laboratory assistant protected the collateral ligaments. The box cutting guide was pinned. The box cuts were made. The boxed trial was placed and was an excellent fit. Drill holes for the lugs were made. Attention was then turned to the proximal tibia. The extramedullary tibial guide was placed for a neutral varus/valgus cut with 5 degrees of posterior slope, removing 2 mm based off the medial tibial surface. The dairy and food laboratory assistant protected the collateral ligaments and the neurovascular bundle. The saw was used to make the cut. Trial components were placed. The knee was nicely balanced in both flexion and extension. The trial components were removed. The tray was placed in appropriate rotation, parallel to our tibial cutting pins. It was pinned by the dairy and food laboratory assistant and the drill x2 was used. The stemmed tibial trial was placed. The punch was used. The tray was removed. The punch was used again. Attention was then turned to the patella. [place] patellar thickness was 22.5 mm. The lobster claw resection guide was used with the 9.5 mm jaclyn. The saw was used to make the cut. Drill holes were made by the dairy and food laboratory assistant. The trial was placed and was an excellent fit. Cancellous surfaces were irrigated with pulse lavage and thoroughly dried by the dairy and food laboratory assistant. We cemented the tibial component, then the femoral component. We impacted the 5 mm polyethylene onto the tibial tray. The knee was brought into full extension. We then cemented the patellar component. Excessive cement was removed. The cement was allowed to harden. The knee was taken through a range of motion and was found to be nicely balanced in both flexion and extension. The patella tracks centrally. The dairy and food laboratory assistant did a three minute dilute Betadine solution soak. The dairy and food laboratory assistant irrigated the wound with 3 liters of normal saline via pulse lavage. The dairy and food laboratory assistant reapproximated the extensor mechanism with #1 Vicryl in an interrupted [id number] fashion. The dairy and food laboratory assistant then ran the extensor mechanism with a #1 PDO Stratafix. The dairy and food laboratory assistant closed the subcutaneous tissues with a 3-0 Stratafix and the skin with a running 3-0 Stratafix in a subcuticular fashion. Glue was used to seal the skin. The dairy and food laboratory assistant placed a dry dressing, PAULINE stocking, and Polar Care. Sponge and needle counts were correct x2. The patient tolerated the procedure well. There were no apparent complications. They were carefully transferred to the hospital bed and taken to the postanesthesia care unit in satisfactory condition. PLAN: The patient will be mobilized with physical therapy. Aspirin will be used for DVT prophylaxis. They will be discharged to home once medically appropriate.
--- NOTE | 2023-09-24 13:10 | W.ANESCHARGE ---
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
[2023-09-24] MEDS: LACTATED RINGERS 1000 ML 1,000 ML 75 ML IV (14:23)
--- NOTE | 2023-09-24 14:39 | PM.IMCN1 ---
Date of Consult Consult date: 09/24/23 Primary Care Provider: Bigg Lan MD Consult Narrative Narrative: HOSPITALIST CONSULT NAME OF OPERATION: Right total knee arthroplasty SURGEON: Andres Haskins MD ANESTHESIA: Spinal ESTIMATED BLOOD LOSS: 0 mL COMPLICATIONS: None The hospital medicine team was asked by the orthopedic surgery team to manage the patient's type 2 diabetes, hypertension, history of medullary sponge kidney. There have been no perioperative complications. Updated and reviewed the active medical problems, past medical history, past surgical history, social history, allergies and medications in our electronic EMR. PHYSICAL EXAM: CODE STATUS: FULL CODE CONSTITUTIONAL: Conversive, good historian. A/O. Knows setting and context. VITAL SIGNS: see record. HEENT: Normocephalic, atraumatic. PERRL, EOMI, conjunctivae pink, no scleral icterus. Ears and nose externally normal. Pharynx normal. NECK: No JVD. No carotid bruit, no thyromegaly, no adenopathy. CHEST: Clear to auscultation bilaterally HEART: S1 and S2 normal. ABDOMEN: Flat, soft, nontender. Normal bowel sounds. Moderately obese. EXTREMITIES: No edema. MUSCULOSKELETAL: Right knee with surgical dressing. NEURO: Cranial nerves intact. Mentation normal. Normal affect. SKIN: No rashes, petechiae, concerning changes PSYCHIATRIC: Mentation normal. INVESTIGATIONS: EMR Reviewed; Pre-OP Reviewed DISPOSITION: DVT: Agree with Ortho team decision, Aspirin b.i.d. appropriate GI: PO intake [facility] Medical History (Updated 09/24/23 @ 14:51 by Abigail Brooks MD) Inguinal hernia, right (02/27/20) ?K40.90 - Unilateral inguinal hernia, without obstruction or gangrene, not specified as recurrent (ICD-10) Family history of colon cancer ?Z80.0 - Family history of malignant neoplasm of digestive organs (ICD-10) Atypical nevus ?D22.9 - Melanocytic nevi, unspecified (ICD-10) Hyperplastic colon polyp ?K63.5 - Polyp of colon (ICD-10) Congenital medullary sponge kidney ?Q61.5 - Medullary cystic kidney (ICD-10) Hyperlipidemia ?E78.5 - Hyperlipidemia, unspecified (ICD-10) 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 - Cystic kidney disease, unspecified (ICD-10) Type 2 diabetes mellitus without complications ?E11.9 - Type 2 diabetes mellitus without complications (ICD-10) Hypertension ?I10 - Essential (primary) hypertension (ICD-10) Surgical History (Updated 09/24/23 @ 14:52 by Afshan Lopez ~ [facility]) 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) ?Z96.651 - Presence of right artificial knee joint (ICD-10) 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) ?Z96.652 - Presence of left artificial knee joint (ICD-10) History of tonsillectomy and adenoidectomy ?Z90.89 - Acquired absence of other organs (ICD-10) H/O local excision of skin lesion (~09/29/17) ?Z98.890 - Other specified postprocedural states (ICD-10) Hx of colonoscopy ?Z98.890 - Other specified postprocedural states (ICD-10) H/O hernia repair (03/07/20) ?Z98.890 - Other specified postprocedural states (ICD-10) ?Z87.19 - Personal history of other diseases of the digestive system (ICD-10) History of appendectomy ?Z90.49 - Acquired absence of other specified parts of digestive tract (ICD-10) Family History Father Pacemaker Myocardial infarction Heart disease Mother Colon cancer Brother Bladder cancer Brother Hodgkin lymphoma Maternal Grandfather Heart disease Social History (Reviewed 05/06/23 @ 14:02 by Afshan Lopez ~ [facility], [facility]) What is your current living situation?: I presently have a place to live Problems where you live: no known problems In the past 12 months, utilities in danger of being shut off: no In past 12 months, lack of transportation kept you from medical appts, meetings, work, or getting things needed for daily living: yes In the past 12 mos, have been you worried that your food would run out before you had money to buy more?: never true In the past 12 mos, the food you bought just didn't last and you didn't have money to buy more?: never true Smoking Status: Never smoker Do you use any of these nicotine containing products: None Second hand tobacco smoke exposure: No How often do you have a drink containing alcohol: monthly or less Alcohol type: beer How many standard drinks containing alcohol do you have on a typical day: 1 or 2 How often do you have six or more drinks on one occasion: Never AUDIT-C Alcohol total score: 1 Non-prescribed substance use: denies use Caffeine: Yes How often does anyone, including family, friends and others, physically hurt you: never How often does anyone, including family, friends and others, insult or talk down to you: never How often does anyone, including family, friends and others, threaten you with harm: never How often does anyone, including family, friends and others, scream or curse at you: never service: Yes Meds Home Medications and Allergies Home Medications Medication Instructions Recorded Confirmed Type fluticasone propionate 50 1 spray intranasal BID 02/16/23 09/24/23 History mcg/actuation nasal spray,suspension hydrochlorothiazide 12.5 mg tablet 12.5 mg PO HS 02/16/23 09/24/23 History losartan 50 mg tablet 50 mg PO HS 02/16/23 09/24/23 History multivitamin (Multiple Vitamins 1 tab PO DAILY 02/16/23 09/24/23 History tablet) omega 5-fwv-bne-fish oil 1,000 mg 1 cap PO DAILY 02/16/23 09/24/23 History (120 mg-180 mg) capsule (Fish Oil) simvastatin 20 mg tablet 20 mg PO HS 03/23/23 09/24/23 History ferrous sulfate 325 mg (65 mg 325 mg PO DAILY 03/24/23 09/24/23 History iron) tablet (FeroSul) Allergies Allergy/AdvReac Type Severity Reaction Status Date / Time Sulfa (Sulfonamide AdvReac Rash Verified 09/24/23 08:43 Antibiotics) Exam Const: Vital Signs, click to edit/add: Vital Signs - 24 hr 09/24/23 09:45 09/24/23 10:10 09/24/23 10:15 Temperature 98.5 F 98.5 F 98.5 F Pulse Rate 52 L 51 L 52 L Respiratory Rate 16 16 16 Blood Pressure 157/79 H 149/79 H 157/89 H Pulse Oximetry 98 98 98 Oxygen Delivery Me thod Nasal Cannula Nasal Cannula Oxygen Flow Rate 2 2 09/24/23 13:05 09/24/23 13:10 09/24/23 13:15 Temperature 97.4 F L Pulse Rate 52 L 59 L 53 L Respiratory Rate 16 18 18 Blood Pressure 108/64 103/67 102/74 Pulse Oximetry 95 95 97 Oxygen Delivery Me thod Room Air Room Air Room Air Oxygen Flow Rate 09/24/23 13:20 09/24/23 13:25 09/24/23 13:30 Temperature 97.3 F L Pulse Rate 54 L 52 L 51 L Respiratory Rate 16 14 16 Blood Pressure 114/75 113/73 108/73 Pulse Oximetry 96 97 98 Oxygen Delivery Me thod Room Air Room Air Room Air Oxygen Flow Rate 2 09/24/23 13:35 Temperature 97.3 F L Pulse Rate 51 L Respiratory Rate 18 Blood Pressure 109/75 Pulse Oximetry 96 Oxygen Delivery Me thod Room Air Oxygen Flow Rate Assessment and Plan Assessment and plan (1) Status post right knee replacement: Problem comment: Dr. Haskins 09/23/23 Status: Acute Assessment and Plan: - hospitalist team is happy to follow patient through to discharge. I have ordered a.c. at bedtime Accu-Cheks and sliding scale insulin. I held his two antihypertensives. (2) Unspecified essential hypertension: Status: Acute Assessment and Plan: -2 home meds are on hold. Current blood pressure 123/81. Pulse 49. (3) Congenital medullary sponge kidney: Status: Acute Assessment and Plan: -Noted (4) Type 2 diabetes mellitus without complications: Problem comment: - A1C 6.6 09/23, Accu-Cheks ordered. - diet controlled Status: Chronic (5) Hyperlipidemia: Problem comment: Continue simvastatin. Status: Chronic
--- NOTE | 2023-09-24 15:08 | PC.NURSE ---
Up to floor 1350. VSS- sonu, however, runs low and was this prior to surgery. RA. Denies pain. Legs still numb, cannot wiggle toes yet. Cryo cuff on, knee gatch locked on bed. Tolerating water & snacks. Has not voided yet or gotten OOB. Last BM this AM. PIV w/ LR @ 75 cc/hr. Dressing to right knee- c/d/i. Abigail- at bedside, is a RN. Will continue to monitor, follow POC, and keep pt and family updated. Ivy Resendez RN
[2023-09-24] MEDS: CEFAZOLIN 2 GM in 0.9 % SODIUM CHLORIDE Mini-bag 100 ML IVPB (17:37)
[2023-09-24] MEDS: SIMVASTATIN 20 MG TABLET PO (20:35)
[2023-09-24] MEDS: SENNOSIDES 1 TAB TABLET 2 TAB PO (20:35)
[2023-09-24] MEDS: ASPIRIN 81 MG TABLET EC PO (20:35)
[2023-09-25] MEDS: CEFAZOLIN 2 GM in 0.9 % SODIUM CHLORIDE Mini-bag 100 ML IVPB (01:10)
[2023-09-25] MEDS: SODIUM CHLORIDE 0.9 % (FLUSH) 10 ML SYRINGE IVF (01:11)
[2023-09-25 03:00] VITALS: BP 115/74; PULSE 76; RESP 18; TEMP 36.9; O2SAT 97
[2023-09-25] MEDS: ACETAMINOPHEN 500 MG TABLET 1000 MG PO (04:32)
[2023-09-25 06:47] LABS: Basophils Percent Auto 0.1 % (0.0-3.0); Hematocrit 40.9 % (37.0-53.0); Immature Granulocytes Pct Auto 0.2 %; Lymphocytes Percent Auto 10.5 % (20-44); Mean Corpuscular HGB Conc 32 gm/dL (32-36); Mean Corpuscular Hemoglobin 26 pg (26-34); Mean Corpuscular Volume 81 fL (80-100); Monocytes Percent Auto 7.4 % (0.0-11.0); Neutrophils Percent Auto 81.8 % (42.0-72.0); Platelet Count* 234 K/uL (140-440); Red Blood Count 5.07 m/uL (4.30-5.90); White Blood Count* 12.88 K/uL (4.50-11.00)
[2023-09-25 06:49] LABS: Slide Review Reflex No
[2023-09-25 06:57] LABS: Potassium* 4.9 mmol/L (3.6-5.1); Sodium* 134 mmol/L (135-149)
[2023-09-25 07:00] LABS: Creatinine* 0.7 mg/dL (0.5-1.5); Est. Creatinine Clearance* 53.81; Estimated Glomerular Filt Rate 95 ml/min
[2023-09-25 07:01] LABS: Blood Urea Nitrogen* 22 mg/dL (7-30); Prothrombin Time 13.8 Seconds
--- NOTE | 2023-09-25 07:02 | PC.NURSE ---
[id number] Pt amb[address] halls extremely well, no pain 0/10. ice to right knee tolerating intake. dressing C/D/I
[2023-09-25 07:27] VITALS: BP 119/69; PULSE 57; RESP 24; TEMP 36.9; O2SAT 96
--- NOTE | 2023-09-25 09:20 | PM.ORPN ---
Subjective Subjective Time Seen by Provider: 07:50 Date Seen: 09/25/23 Principal diagnosis: Status post right knee replacement. Interval history: Zack is doing well this morning. He has no pain. He is looking forward to discharging to home today. Ortho Exam Narrative Exam Narrative: Alert and oriented x3. Patient is in no acute distress. Converses without labored breathing. Hearing is grossly intact. Ambulates with a walker. Examination of the right lower extremity shows the dressing is intact. Mild effusion. Mild soft tissue edema. Robert stockings are in place. CMS intact right lower extremity. Bilateral calves are soft and nontender. He is able to straight leg raise. He is able to actively flex and extend his knee with ease this morning. Quad strength 5/5. Const Vital Signs, click to edit/add: Vital Signs - 24 hr 09/24/23 09:45 09/24/23 10:10 09/24/23 10:15 Temperature 98.5 F 98.5 F 98.5 F Pulse Rate 52 L 51 L 52 L Pulse Rate [Pulse Oximeter] Pulse Rate [Right Dorsalis Pedis] Respiratory Rate 16 16 16 Blood Pressure 157/79 H 149/79 H 157/89 H Blood Pressure [Left Arm] Blood Pressure [Right Arm] Pulse Oximetry 98 98 98 Oxygen Delivery Method Nasal Cannula Nasal Cannula Oxygen Flow Rate 2 2 09/24/23 13:05 09/24/23 13:10 09/24/23 13:15 Temperature 97.4 F L Pulse Rate 52 L 59 L 53 L Pulse Rate [Pulse Oximeter] Pulse Rate [Right Dorsalis Pedis] Respiratory Rate 16 18 18 Blood Pressure 108/64 103/67 102/74 Blood Pressure [Left Arm] Blood Pressure [Right Arm] Pulse Oximetry 95 95 97 Oxygen Delivery Method Room Air Room Air Room Air Oxygen Flow Rate 09/24/23 13:20 09/24/23 13:25 09/24/23 13:30 Temperature 97.3 F L Pulse Rate 54 L 52 L 51 L Pulse Rate [Pulse Oximeter] Pulse Rate [Right Dorsalis Pedis] Respiratory Rate 16 14 16 Blood Pressure 114/75 113/73 108/73 Blood Pressure [Left Arm] Blood Pressure [Right Arm] Pulse Oximetry 96 97 98 Oxygen Delivery Method Room Air Room Air Room Air Oxygen Flow Rate 2 09/24/23 13:35 09/24/23 13:50 09/24/23 14:05 Temperature 97.3 F L 97.5 F L 97.5 F L Pulse Rate 51 L 49 L Pulse Rate [Pulse Oximeter] Pulse Rate [Right Dorsalis Pedis] 50 L Respiratory Rate 18 14 14 Blood Pressure 109/75 Blood Pressure [Left Arm] Blood Pressure [Right Arm] 123/81 140/88 H Pulse Oximetry 96 97 Oxygen Delivery Method Room Air Room Air Oxygen Flow Rate 09/24/23 14:20 09/24/23 14:35 09/24/23 14:50 Temperature 97.5 F L Pulse Rate Pulse Rate [Pulse Oximeter] Pulse Rate [Right Dorsalis Pedis] 61 59 L 55 L Respiratory Rate 14 14 16 Blood Pressure Blood Pressure [Left Arm] Blood Pressure [Right Arm] 136/81 134/82 124/77 Pulse Oximetry 96 96 97 Oxygen Delivery Method Room Air Room Air Room Air Oxygen Flow Rate 09/24/23 15:30 09/24/23 16:00 09/24/23 17:00 Temperature 97.8 F Pulse Rate Pulse Rate [Pulse Oximeter] Pulse Rate [Right Dorsalis Pedis] 62 74 72 Respiratory Rate 16 16 16 Blood Pressure Blood Pressure [Left Arm] Blood Pressure [Right Arm] 125/81 147/86 H 134/82 Pulse Oximetry 97 96 97 Oxygen Delivery Method Room Air Room Air Room Air Oxygen Flow Rate 09/24/23 18:00 09/24/23 18:32 09/24/23 20:00 Temperature 97.8 F 98.5 F Pulse Rate Pulse Rate [Pulse Oximeter] Pulse Rate [Right Dorsalis Pedis] 70 75 Respiratory Rate 16 20 Blood Pressure Blood Pressure [Left Arm] Blood Pressure [Right Arm] 133/74 149/82 H Pulse Oximetry 97 96 Oxygen Delivery Method Room Air Room Air Oxygen Flow Rate 09/24/23 22:46 09/25/23 03:00 09/25/23 07:27 Temperature 98.5 F 98.5 F 98.5 F Pulse Rate Pulse Rate [Pulse Oximeter] 57 L Pulse Rate [Right Dorsalis Pedis] 75 76 Respiratory Rate 20 18 24 Blood Pressure Blood Pressure [Left Arm] 119/69 Blood Pressure [Right Arm] 121/75 115/74 Pulse Oximetry 95 97 96 Oxygen Delivery Method Room Air Room Air Room Air Oxygen Flow Rate 0 09/25/23 07:27 Temperature Pulse Rate Pulse Rate [Pulse Oximeter] 57 L Pulse Rate [Right Dorsalis Pedis] Respiratory Rate 24 Blood Pressure Blood Pressure [Left Arm] Blood Pressure [Right Arm] Pulse Oximetry Oxygen Delivery Method Oxygen Flow Rate Assessment and Plan Assessment and plan (1) Status post right knee replacement: Problem details: Dr. Haskins 09/24/23 Status: Acute Assessment and Plan: Plan for discharge is today to home if they meet discharge criteria. DVT prophylaxis includes aspirin 81 mg twice daily x1 month, Robert stockings x1 month may remove for 1 hr per day, frequent ambulation Remove dressing in 1 week. Observe wound and phone Orthopedics with any questions or concerns Return to clinic in 1 week for a wound check Return to clinic in 6 weeks with surgeon Minimize narcotic use. Wean off and discontinue soon as possible. Activities as tolerated. No strenuous activity. Outpatient physical therapy as scheduled. Ice and elevate the operative extremity. No restriction on ice. Patient states that after his left knee replacement last summer, he did not take any oxycodone. He has a full bottle at home and does not plan to use any. He currently has no pain.
[2023-09-25] MEDS: SENNOSIDES 1 TAB TABLET 2 TAB PO (09:42)
[2023-09-25] MEDS: FERROUS SULFATE 325 MG TABLET PO (09:43)
[2023-09-25] MEDS: ASPIRIN 81 MG TABLET EC PO (09:43)
--- NOTE | 2023-09-25 10:55 | PC.NURSE ---
Discharge: Patient pleasant and cooperative. Patient vitally stable, lungs clear, BS WNL, IV removed, catheter intact. Patient denies left knee pain, left knee dressing C/D/I. Patient SBA/Walker. Patient tolerating regular diet and urinating. Patient signed belongings sheet and discharge form. Patient had no further questions regarding discharge. Patient left the floor to home by wheelchair at 1052.
== END 2023-09-25 10:52 | disposition home or self-care (01) ==
LOC: OR 08:31 → MEDSURG 08:33
PROVIDERS: PCP Family Medicine; Visit Provider Orthopaedic Surgery
PROC: (CPT 27447; principal; 2023-09-24 10:45)
DX: M17.11 Unilateral primary osteoarthritis, right knee (principal); G89.18 Other acute postprocedural pain; E66.9 Obesity, unspecified; Z68.39 Body mass index [BMI] 39.0-39.9, adult; I10 Essential (primary) hypertension; E11.9 Type 2 diabetes mellitus without complications; E78.5 Hyperlipidemia, unspecified; Q61.5 Medullary cystic kidney
CPT/HCPCS: 27447; 01402; 36415; 64447; 64454; 73560; 76942; 82565; 82962; 84132; 84295; 84520; 85025; 85610; 97110; 97161; 97165; 97535; 99100; A9270; C1776; J0690; J1100; J2250; J2704; J2795; J3010; J7120

== ENCOUNTER 2023-11-06 07:30 | Outpatient (RCR) | payer MEDICARE, SELFPAY ==
--- NOTE | 2023-09-28 09:11 | PT.OPEX ---
[facility] Outpatient Eval PT [facility] Outpatient Eval Start: 09/28/23 07:34 Freq: Status: Active Protocol: Document 09/28/23 08:44 IRIS (Rec: 09/28/23 09:06 IRIS [id number]) E-signed By Scotty Aguilar PT Physical Therapy Outpatient Evaluation Insurance Information Insurance Name Medicare B Medical Diagnosis Right knee OA Right knee S/P TKA (09/24/23) History of left knee TKA Treating Diagnosis Right knee pain Right quad weakness Decreased right knee ROM Subjective Subjective Pt. reports undergoing right knee TKA on 09/24/23 due to progressive OA with locking and instability symptoms leading up to surgery. He had his left knee replaced 6 months ago and has done well with his recovery and function . He lives with his in a rambler home. He states that he did pretty well over the weekend after returning home the day after surgery on Thursday. He states that other than his knees, he doesn't have any other problems with joint pain/OA. He is motivated to return to his prior level of function. Pain Comments mild today Date of Surgery (If applicable) 09/24/23 Current Work Status Retired Preferred Name Zack Objective Other/Pertinent Objective Gait: Ambulation with w- wheeled walker with mild limp and mild flexed knee at heelstrike ROM: 7-103 degrees of right knee ROM Bilateral UE ROM/strength are WNL Left knee ROM is WNL Right quad strength: 3/5 versus 5/5 left quad strength Assessment Assessment/Impression Objectively, pt. demonstrates; ambulation with w-walker with mild limp and mild knee flexion at heel strike; 7-103 degrees of right knee ROM; 3/5 right quad strength with ability to perform indep. SLR with extension lag; and moderate swelling right LE with mild warmth noted. He would benefit from skilled therapy working on TKA rehab per protocol for 6-8 weeks before D/C to HEP. Primary Functional Limitations walking, squatting, stairs, lifting Plan of Care Rehabilitation Potential Excellent Physical Therapy Goals 1. Pt. will be indep. with HEP for self maintenance in 8 weeks. 2. Pt. will be able to walk without a limp without assistive device in 8 weeks. 3. Pt. will demonstrate improved quad and core strength to normal in 8 weeks. 4. Pt. will demonstrate functional knee AROM to allow regular ADL's in 8 weeks. Coordination/Communication With Referral Source Treatment Plan/Direct Interventions Gait Training,Joint Mobilization,Manual Therapy, Self-Care/Home Management, Therapeutic Activities, Therapeutic Exercises Frequency/Duration 2 times a week for 8 weeks. Patient Will Be Discharged From Therapy Independent w/HEP, Independently Progressing Evaluation Billing Complexity Low Certification Information Initial Certification Date 09/28/23 Ending Certification Date 12/22/23 Provider Signature Shows Agreement With POC & Medical Necessity Physician Signature & Date Requested Please Sign/Date Here Physician Comment/Change : Physician NPI Number #
== END 2023-11-10 10:01 | disposition home or self-care (01) ==
PROVIDERS: PCP Family Medicine; Visit Provider Orthopaedic Surgery
DX: M17.11 Unilateral primary osteoarthritis, right knee (principal); Z96.651 Presence of right artificial knee joint; M25.561 Pain in right knee; R29.898 Other symptoms and signs involving the musculoskeletal system; Z51.89 Encounter for other specified aftercare
CPT/HCPCS: 97110; 97140; 97161